=== PATIENT | female | born 1995 | race Caucasian/White ===

== ENCOUNTER → 2021-02-07 09:26 | Outpatient (CLI) | payer OTHER, SELFPAY ==
[2021-02-07] MEDS: COVID-19 VACC #1, MRNA(MOD) 100 MCG/0.5 ML VIAL IM (09:37)
== END ==
PROVIDERS: Visit Provider Internal Medicine
DX: Z23 Encounter for immunization (principal)
CPT/HCPCS: 0011A; 91301

== ENCOUNTER → 2021-03-07 08:55 | Outpatient (CLI) | payer OTHER, SELFPAY ==
[2021-03-07] MEDS: COVID-19 VACC #2, MRNA(MOD) 100 MCG/0.5 ML VIAL IM (09:04)
== END ==
PROVIDERS: Visit Provider Internal Medicine
DX: Z23 Encounter for immunization (principal)
CPT/HCPCS: 0012A; 91301

== ENCOUNTER → 2024-08-31 16:50 | Outpatient (CLI) | payer BC, SELFPAY ==
[2024-08-31 18:11] LABS: Add Manual Diff / Slide Review NO; Basophils Absolute Auto 0 /uL (0-100); Basophils Percent Auto 0.3 % (0-2); Eosinophils Absolute Auto 0 /uL (0-450); Eosinophils Percent Auto 0.8 % (2-4); Hematocrit 38.9 % (36-46); Hemoglobin 13.4 g/dL (12.0-16.0); Lymphocytes Absolute Auto 1600 /uL (1100-4500); Lymphocytes Percent Auto 42.1 % (25-40); Mean Corpuscular HGB Conc 34.4 % (30-36); Mean Corpuscular Hemoglobin 29.4 PG (26-34); Mean Corpuscular Volume 85.3 fL (80-100); Monocytes Absolute Auto 500 /uL (0-900); Monocytes Percent Auto 13.3 % (3-14); Neutrophils Absolute Auto 1700 /uL (1500-7000); Neutrophils Percent Auto 43.5 % (50-75); Platelet Count 162 X10^3/uL (150-400); Red Blood Cell Count 4.56 X10^6/uL (4.0-5.2); Red Cell Distribution Width 13.3 % (11.6-14.8); White Blood Cell Count 3.8 X10^3/uL (4.5-11.0)
[2024-08-31 18:40] LABS: Alanine Aminotransferase 21 IU/L (<35); Albumin 4.5 g/dL (3.5-5.0); Albumin Globulin Ratio 1.7 (1.0-2.8); Alkaline Phosphatase 89 U/L (38-126); Aspartate Aminotransferase 27 IU/L (14-36); Bilirubin Total 0.5 mg/dL (0.2-1.3); Blood Urea Nitrogen 8 mg/dL (7-17); Calcium 9.5 mg/dL (8.4-10.2); Carbon Dioxide 22 mmol/L (22-32); Chloride 107 mmol/L (98-107); Cholesterol 219 mg/dL (140-199); Estimated Glomerular Filt Rate > 60 mL/min (>60); Globulin 2.7 g/dL (1.7-4.1); Glucose 97 mg/dL (70-100); HDL Cholesterol 52 mg/dL (40-60); HEMOLYSIS < 15 (0-50); LDL Cholesterol Calculated 150 mg/dL (<100); Potassium 3.8 mmol/L (3.4-5.1); Sodium 136 mmol/L (137-145); Total Protein 7.2 g/dL (6.3-8.2); Triglycerides 85 mg/dL (35-150)
[2024-08-31 20:27] LABS: TSH w/ Reflex to FT4 1.22 uIU/mL (0.47-4.68)
== END ==
PROVIDERS: PCP Family Medicine; Referring Provider Family Medicine; Visit Provider Family Medicine
DX: Z00.00 Encounter for general adult medical examination without abnormal findings (principal); F32.A Depression, unspecified
CPT/HCPCS: 80053; 80061; 84443; 85025

== ENCOUNTER 2024-11-25 10:10 | Emergency (ER) | payer BC, SELFPAY ==
[2024-11-25 10:21] VITALS: BP 117/58; PULSE 76; RESP 16; TEMP 36.3; O2SAT 99; BMI 30.2
--- NOTE | 2024-11-25 10:26 | DI.RAD.S_ITS ---
PROCEDURE: XR CHEST 1V INDICATIONS: chest pain TECHNIQUE: One view of the chest was acquired. COMPARISON: None. FINDINGS: Surgical changes and devices: None. Lungs and pleura: No dense airspace disease. No pleural effusions. Mediastinum: Normal heart size Bones and chest wall: Unremarkable IMPRESSION: No dense airspace disease or pleural effusion on this single view study. Dictated by: Nakul Marroquin M.D. on 11/25/2024 at 10:06 Approved by: Nakul Marroquin M.D. on 11/25/2024 at 10:06
--- NOTE | 2024-11-25 10:26 | EKG_ITS ---
[facility] [address] [place] [address] Test Date: 2024-11-25 Pat Name: Ashley Ramsey Department: [facility] Room: Gender: Female Set O Type Operator: MARVEL : 1995 Requested By: Order Number: [id number] Reading MD: Stefan Fletcher Measurements Intervals [place] Rate: 83 P: 35 RI: 108 QRS: 54 QRSD: 82 T: -4 QT: 366 QTc: 430 Interpretive Statements Sinus rhythm with short RI Nonspecific ST abnormality Electronically Signed On 11-25-2024 17:07:08 PST by Stefan Fletcher
[2024-11-25 11:00] LABS: Add Manual Diff / Slide Review NO; Basophils Absolute Auto 0 /uL (0-100); Basophils Percent Auto 0.4 % (0-2); Eosinophils Absolute Auto 100 /uL (0-450); Eosinophils Percent Auto 1.2 % (2-4); Hematocrit 44.5 % (36-46); Lymphocytes Absolute Auto 1800 /uL (1100-4500); Lymphocytes Percent Auto 21.6 % (25-40); Mean Corpuscular HGB Conc 33.8 % (30-36); Mean Corpuscular Hemoglobin 28.6 PG (26-34); Mean Corpuscular Volume 84.8 fL (80-100); Monocytes Absolute Auto 700 /uL (0-900); Monocytes Percent Auto 8.3 % (3-14); Neutrophils Absolute Auto 5800 /uL (1500-7000); Neutrophils Percent Auto 68.5 % (50-75); Platelet Count 184 X10^3/uL (150-400); Red Blood Cell Count 5.25 X10^6/uL (4.0-5.2); White Blood Cell Count 8.4 X10^3/uL (4.5-11.0)
[2024-11-25 11:07] LABS: Prothrombin Time 11.8 SECONDS (9.4-12.5)
[2024-11-25 11:09] LABS: PTT Partial Thromboplastin Tim 38 SECONDS (25.1-36.5)
[2024-11-25 11:11] LABS: Alanine Aminotransferase 28 IU/L (<35); Albumin 4.9 g/dL (3.5-5.0); Albumin Globulin Ratio 1.8 (1.0-2.8); Alkaline Phosphatase 102 U/L (38-126); Aspartate Aminotransferase 30 IU/L (14-36); Bilirubin Total 0.7 mg/dL (0.2-1.3); Blood Urea Nitrogen 8 mg/dL (7-17); Calcium 9.8 mg/dL (8.4-10.2); Carbon Dioxide 18 mmol/L (22-32); Chloride 108 mmol/L (98-107); Creatine Kinase 55 U/L (30-135); Estimated Glomerular Filt Rate > 60 mL/min (>60); Globulin 2.8 g/dL (1.7-4.1); Glucose 104 mg/dL (70-100); HEMOLYSIS < 15 (0-50); Lipase 94 U/L (23-300); Magnesium 1.8 mg/dL (1.6-2.3); Potassium 3.2 mmol/L (3.4-5.1); Sodium 137 mmol/L (137-145); Total Protein 7.7 g/dL (6.3-8.2)
[2024-11-25 11:22] LABS: NT-proBNP (BNP-Adult 18+) < 20 pg/mL (<125); Troponin I < 0.012 ng/mL (0.01-0.034)
[2024-11-25 12:01] LABS: Adenovirus Not Detected (Not Detect); B. parapertussis Not Detected (Not Detecte); Bordetella pertussis Not Detected (Not Detect); Chlamydophila pneumoniae Not Detected (Not Detect); Coronavirus 229E Not Detected (Not Detect); Coronavirus HKU1 Not Detected (Not Detect); Coronavirus NL 63 Detected (Not Detect); Coronavirus OC43 Not Detected (Not Detect); Human Metapneumovirus Not Detected (Not Detect); Human Rhinovirus/Enterovirus Not Detected (Not Detect); Influenza A Not Detected (Not Detect); Influenza B Not Detected (Not Detect); Mycoplasma pneumoniae Not Detected (Not Detect); Parainfluenza Virus 1 Not Detected (Not Detect); Parainfluenza Virus 2 Not Detected (Not Detect); Parainfluenza Virus 3 Not Detected (Not Detect); Parainfluenza Virus 4 Not Detected (Not Detect); Respiratory Syncytial Virus Not Detected (Not Detect); SARS- CoV-2 Not Detected (Not Detecte)
--- NOTE | 2024-11-25 12:04 | ED_ITS ---
HPI - URI/Sore Throat <Bee Valles PA-C - Last Filed: 11/25/24 13:45> General Chief Complaint: Upper Respiratory Symptoms Stated Complaint: per pt has pneumonia, asthma attacks Time Seen by Provider: 11/25/24 11:51 Source: patient Mode of arrival: Ambulatory History of Present Illness HPI Narrative: 28-year-old female with a history of asthma presents with a persistent cough. Apparently she was treated in [place] for pneumonia 12 days ago and completed a 5 day Z-Christopher and oral steroid taper. She states she did start to feel better after that but now her symptoms have recurred. Her son is also here being evaluated for a cough for the last 3 days. She denies any fever, she has been using her inhaler without a spacer, tried the spacer at triaged and it was a marked improvement. She states her chest hurts when she coughs only. She is able to lay flat. She is denying any recent travel, she has a Mirena IUD from 2022, history of PCOS, COVID, migraine, anemia, hyperlipidemia, insomnia, depression. All other systems are reviewed and are negative. Related Data Home Medications Medication Instructions Recorded Confirmed buspirone 15 mg tablet 15 mg PO TID PRN 08/31/24 10/24/24 Previous Rx's Medication Instructions Recorded fluoxetine 20 mg tablet 20 mg PO DAILY #90 tabs 08/31/24 fluticasone propionate 44 1 puff inhalation BID #10.6 grams 11/25/24 mcg/actuation HFA aerosol inhaler prednisone 20 mg tablet 40 mg (2 x 20 mg) PO DAILY #10 tabs 11/25/24 Allergies Allergy/AdvReac Type Severity Reaction Status Date / Time amoxicillin Allergy Mild Verified 11/25/24 10:21 Penicillins Allergy Mild Verified 11/25/24 10:21 Review of Systems <Bee Valles PA-C - Last Filed: 11/25/24 13:45> Review of Systems Narrative: All other systems reviewed and are negative. Patient History <Bee Valles PA-C - Last Filed: 11/25/24 13:45> Medical History Hyperlipidemia Insomnia Plantar warts (~2013) Asthma (~2009) PTSD (post-traumatic stress disorder) (~2013) Anxiety (~2012) Migraines (~2018) Plantar fasciitis (~2017) COVID (~2021) Chicken pox Anemia (~2009) Vertigo (~2017) PCOS (polycystic ovarian syndrome) (~2011) Painful menstrual periods (~2007) Ovarian cyst (~2010) Heavy menstrual period (~2007) Gluten enteropathy (~2009) Preventative health care Depression (~2012) Surgical History Anesthesia Vaginal delivery (~04/14/23) History of root canal procedure (~01/2021) [place] teeth removed (~04/2014) Family History Father Hypertension Mental health problem Mother Mental health problem Thyroid disorder PCOS (polycystic ovarian syndrome) EDS (Danii-Danlos syndrome) Celiac disease Sister EDS (Danii-Danlos syndrome) PCOS (polycystic ovarian syndrome) Celiac disease Grandfather Diabetes mellitus Grandmother Diabetes mellitus Grandfather Hypertension History of heart disease Grandmother Hypertension Social History Smoking Status: Never smoker Smoking Status: Never smoker Exam <Bee Valles PA-C - Last Filed: 11/25/24 13:45> Initial Vital Signs Initial Vital Signs: Vital Signs Temperature 97.4 F L 11/25/24 10:21 Pulse Rate 76 11/25/24 10:21 Respiratory Rate 16 11/25/24 10:21 Blood Pressure 117/58 L 11/25/24 10:21 Pulse Oximetry 99 11/25/24 10:21 Oxygen Delivery Method Room Air 11/25/24 10:21 Vital signs reviewed and are normal. Const General: cooperative, healthy appearing, comfortable, No in distress and No anxious [facility] Head: normal to inspection and normocephalic Ears: hearing grossly normal bilaterally, external ears normal, TM's normal bilaterally, TM normal on the left, EAC's normal and mastoids normal Nose: external nose normal and nares normal Face and sinus: normal facial exam, sinuses nontender and face symmetric Mouth: oral mucosae normal, lip normal, tongue normal and oropharynx normal Teeth and gingiva: dentition normal and gingiva normal Throat: posterior oropharynx normal, tonsils normal and uvula midline Eyes General: Yes appearance normal, both eyes and all related structures Neck Neck: normal visual inspection, full ROM and no meningeal signs Chest Chest: normal inspection of the chest Resp Effort & Inspection: normal respiratory effort, able to speak in complete sentences, cough and respiratory effort not decreased Auscultation: clear to auscultation bilaterally, no crackles, no rales, no rhonchi and no wheezes Cardio Rate: regular rate Rhythm: regular rhythm GI Palpation: no hepatosplenomegaly Skin General: no rashes or lesions noted <DO Efra Patel Last Filed: 11/25/24 13:48> Initial Vital Signs Initial Vital Signs: Vital Signs Temperature 97.4 F L 11/25/24 10:21 Pulse Rate 76 11/25/24 10:21 Respiratory Rate 16 11/25/24 10:21 Blood Pressure 117/58 L 11/25/24 10:21 Pulse Oximetry 99 11/25/24 10:21 Oxygen Delivery Method Room Air 11/25/24 10:21 Course <Bee Valles PA-C - Last Filed: 11/25/24 13:45> Orders Ordered: ED Orders 11/25/24 10:26 XR chest 1V Stat EKG-12 Lead Stat 11/25/24 10:50 Complete Blood Count AUTO DIFF Stat Comprehensive Metabolic Panel Stat Lipase Stat Magnesium Stat NT-proBNP (BNP-Adult 18+) Stat PTT Partial Thromboplastin Erich Stat Prothrombin Time INR Stat Troponin & CK Cardiac Panel Stat 11/25/24 10:54 Respiratory Panel (Film Array) Stat Vital Signs Vital signs: Vital Signs - 8 hr 11/25/24 10:21 Temperature 97.4 F L Pulse Rate 76 Respiratory Rate 16 Blood Pressure 117/58 L Pulse Oximetry 99 Oxygen Delivery Method Room Air <Vipin Munguia DO - Last Filed: 11/25/24 13:48> Orders Ordered: ED Orders 11/25/24 10:26 XR chest 1V Stat EKG-12 Lead Stat 11/25/24 10:50 Complete Blood Count AUTO DIFF Stat Comprehensive Metabolic Panel Stat Lipase Stat Magnesium Stat NT-proBNP (BNP-Adult 18+) Stat PTT Partial Thromboplastin Erich Stat Prothrombin Time INR Stat Troponin & CK Cardiac Panel Stat 11/25/24 10:54 Respiratory Panel (Film Array) Stat Vital Signs Vital signs: Vital Signs - 8 hr 11/25/24 10:21 Temperature 97.4 F L Pulse Rate 76 Respiratory Rate 16 Blood Pressure 117/58 L Pulse Oximetry 99 Oxygen Delivery Method Room Air MDM - URI/Sore Throat <Bee Valles PA-C - Last Filed: 11/25/24 13:45> Lab Data Lab results narrative: CBC, CMP is normal except for slightly low potassium at 3.2. Troponin is negative, lipase normal, comprehensive respiratory panel is positive for plain coronavirus all others are negative. 11/25/24 10:50 11/25/24 10:50 Labs: Lab Results 11/25/24 11/25/24 Range/Units 10:50 10:54 WBC 8.4 (4.5-11.0) X10^3/uL RBC 5.25 H (4.0-5.2) X10^6/uL Hgb 15.0 (12.0-16.0) g/dL Hct 44.5 (36-46) % MCV 84.8 (80-100) fL MCH 28.6 (26-34) PG MCHC 33.8 (30-36) % RDW 14.0 (11.6-14.8) % Plt Count 184 (150-400) X10^3/uL Neut % (Auto) 68.5 (50-75) % Lymph % (Auto) 21.6 L (25-40) % [place] % (Auto) 8.3 (3-14) % Eos % (Auto) 1.2 L (2-4) % Baso % (Auto) 0.4 (0-2) % Neut # (Auto) 5800 (0057-1057) /uL Lymph # (Auto) 1800 (9753-8541) /uL [place] # (Auto) 700 (0-900) /uL Eos # (Auto) 100 (0-450) /uL Baso # (Auto) 0 (0-100) /uL PT 11.8 (9.4-12.5) SECONDS INR 1.0 (0.9-1.3) APTT 38 H (25.1-36.5) SECONDS Sodium 137 (137-145) mmol/L Potassium 3.2 L (3.4-5.1) mmol/L Chloride 108 H (98-107) mmol/L Carbon Dioxide 18 L (22-32) mmol/L BUN 8 (7-17) mg/dL Creatinine 0.89 (0.52-1.04) mg/dL Estimated GFR > 60 (>60) mL/min BUN/Creatinine Ratio 9.0 (6-22) Glucose 104 H (70-100) mg/dL Calcium 9.8 (8.4-10.2) mg/dL Magnesium 1.8 (1.6-2.3) mg/dL Total Bilirubin 0.7 (0.2-1.3) mg/dL AST 30 (14-36) IU/L ALT 28 (<35) IU/L Alkaline Phosphatase 102 (38-126) U/L Total Creatine Kinase 55 (30-135) U/L Troponin I < 0.012 (0.01-0.034) ng/mL NT-Pro-B Natriuret Pep < 20 (<125) pg/mL Total Protein 7.7 (6.3-8.2) g/dL Albumin 4.9 (3.5-5.0) g/dL Globulin 2.8 (1.7-4.1) g/dL Albumin/Globulin Ratio 1.8 (1.0-2.8) Lipase 94 (23-300) U/L Chlamy pneumoniae PCR Not detected (Not Detect) Adenovirus (PCR) Not detected (Not Detect) B. pertussis DNA (PCR) Not detected (Not Detect) B.parapertussis DNA PCR Not detected (Not Detecte) Coronavirus OC43 (PCR) Not detected (Not Detect) Coronavirus HKU1 (PCR) Not detected (Not Detect) Coronavirus 229E (PCR) Not detected (Not Detect) SARS-CoV-2 (PCR) Not detected (Not Detecte) Coronavirus NL63 (PCR) Detected H (Not Detect) Human Metapneumovir PCR Not detected (Not Detect) Influenza Type A (PCR) Not detected (Not Detect) Influenza Type B (PCR) Not detected (Not Detect) M. pneumoniae (PCR) Not detected (Not Detect) Parainfluenza 1 (PCR) Not detected (Not Detect) Parainfluenza 2 (PCR) Not detected (Not Detect) Parainfluenza 3 (PCR) Not detected (Not Detect) Parainfluenza 4 (PCR) Not detected (Not Detect) RSV (PCR) Not detected (Not Detect) Entero/Rhino (PCR) Not detected (Not Detect) Imaging Data Chest x-ray: My Impression: Deferred to radiologist's interpretation below. Radiologist's Impression: PROCEDURE: XR CHEST 1V INDICATIONS: chest pain TECHNIQUE: One view of the chest was acquired. COMPARISON: None. FINDINGS: Surgical changes and devices: None. Lungs and pleura: No dense airspace disease. No pleural effusions. Mediastinum: Normal heart size Bones and chest wall: Unremarkable IMPRESSION: No dense airspace disease or pleural effusion on this single view study. Dictated by: Nakul Marroquin M.D. on 11/25/2024 at 10:06 Approved by: Nakul Marroquin M.D. on 11/25/2024 at 10:06 ECG Data Interpretation: Twelve lead ECG shows ventricular rate of 83 per minute, sinus rhythm, no P or T-wave abnormalities. No priors for comparison, normal axis no ectopy. MDM Narrative Medical decision making narrative: Upper respiratory infection viral illness with standard coronavirus, she is afebrile with normal vital signs. Chest x-ray is normal. Discussed supportive measures, asthma management and following up with her PCP, she has noted not to be on an asthma controller I think she might benefit during this time. At the end of the encounter she did show me a controller and it was Flovent but she does not take it every day discussed the nature of asthma in the 3 components including inflammation, mucus and bronchoconstriction and that a controller will help treat the mucus and inflammation. I have asked her to restart this medication and have refilled it, please do follow up with your PCP. I have started her on a 5 day prednisone burst as well. Regarding her potassium I recommend bananas or foods rich in potassium this may include Gatorade. <Vipin Munguia, - Last Filed: 11/25/24 13:48> Lab Data Labs: Lab Results 11/25/24 11/25/24 Range/Units 10:50 10:54 WBC 8.4 (4.5-11.0) X10^3/uL RBC 5.25 H (4.0-5.2) X10^6/uL Hgb 15.0 (12.0-16.0) g/dL Hct 44.5 (36-46) % MCV 84.8 (80-100) fL MCH 28.6 (26-34) PG MCHC 33.8 (30-36) % RDW 14.0 (11.6-14.8) % Plt Count 184 (150-400) X10^3/uL Neut % (Auto) 68.5 (50-75) % Lymph % (Auto) 21.6 L (25-40) % [place] % (Auto) 8.3 (3-14) % Eos % (Auto) 1.2 L (2-4) % Baso % (Auto) 0.4 (0-2) % Neut # (Auto) 5800 (5406-7183) /uL Lymph # (Auto) 1800 (6629-1261) /uL [place] # (Auto) 700 (0-900) /uL Eos # (Auto) 100 (0-450) /uL Baso # (Auto) 0 (0-100) /uL PT 11.8 (9.4-12.5) SECONDS INR 1.0 (0.9-1.3) APTT 38 H (25.1-36.5) SECONDS Sodium 137 (137-145) mmol/L Potassium 3.2 L (3.4-5.1) mmol/L Chloride 108 H (98-107) mmol/L Carbon Dioxide 18 L (22-32) mmol/L BUN 8 (7-17) mg/dL Creatinine 0.89 (0.52-1.04) mg/dL Estimated GFR > 60 (>60) mL/min BUN/Creatinine Ratio 9.0 (6-22) Glucose 104 H (70-100) mg/dL Calcium 9.8 (8.4-10.2) mg/dL Magnesium 1.8 (1.6-2.3) mg/dL Total Bilirubin 0.7 (0.2-1.3) mg/dL AST 30 (14-36) IU/L ALT 28 (<35) IU/L Alkaline Phosphatase 102 (38-126) U/L Total Creatine Kinase 55 (30-135) U/L Troponin I < 0.012 (0.01-0.034) ng/mL NT-Pro-B Natriuret Pep < 20 (<125) pg/mL Total Protein 7.7 (6.3-8.2) g/dL Albumin 4.9 (3.5-5.0) g/dL Globulin 2.8 (1.7-4.1) g/dL Albumin/Globulin Ratio 1.8 (1.0-2.8) Lipase 94 (23-300) U/L Chlamy pneumoniae PCR Not detected (Not Detect) Adenovirus (PCR) Not detected (Not Detect) B. pertussis DNA (PCR) Not detected (Not Detect) B.parapertussis DNA PCR Not detected (Not Detecte) Coronavirus OC43 (PCR) Not detected (Not Detect) Coronavirus HKU1 (PCR) Not detected (Not Detect) Coronavirus 229E (PCR) Not detected (Not Detect) SARS-CoV-2 (PCR) Not detected (Not Detecte) Coronavirus NL63 (PCR) Detected H (Not Detect) Human Metapneumovir PCR Not detected (Not Detect) Influenza Type A (PCR) Not detected (Not Detect) Influenza Type B (PCR) Not detected (Not Detect) M. pneumoniae (PCR) Not detected (Not Detect) Parainfluenza 1 (PCR) Not detected (Not Detect) Parainfluenza 2 (PCR) Not detected (Not Detect) Parainfluenza 3 (PCR) Not detected (Not Detect) Parainfluenza 4 (PCR) Not detected (Not Detect) RSV (PCR) Not detected (Not Detect) Entero/Rhino (PCR) Not detected (Not Detect) Discharge Plan Departure Patient Disposition: Home Clinical Impression: Asthma Qualifiers: Asthma severity: mild Asthma persistence: unspecified Asthma complication type: uncomplicated Qualified Code(s): J45.909 - Unspecified asthma, uncomplicated URI (upper respiratory infection) Qualifiers: URI type: unspecified viral URI Qualified Code(s): J06.9 - Acute upper respiratory infection, unspecified Instructions: DI for Asthma -- Adult, DI for Viral Upper Respiratory Infection -- Adult Activity Restrictions/Additional Instructions: I would like you to follow up with your PCP to have your asthma re-evaluated, I think he would benefit from a controller, I have refilled your Flovent please do take that as instructed. I have also placed you on a new steroid burst prednisone 40 mg daily for 5 days. Steam therapy, saline nasal spray, use your rescue inhaler with the new spacer that you have been given and by all means seek medical attention if anything changes or worsens. At this point you do have a confirmed viral illness so no additional antibiotics have been ordered, your vital signs are normal and your chest x-ray showed no pneumonia. Please do not hesitate to seek medical attention if it is after hours or you develop any new worrisome symptoms the emergency department is available 247. Prescriptions: New fluticasone propionate 44 mcg/actuation HFA aerosol inhaler 1 puff inhalation BID Qty: 10.6 0RF Rx Instructions: administer with spacer prednisone 20 mg tablet 40 mg PO DAILY Qty: 10 0RF No Action buspirone 15 mg tablet 15 mg PO TID PRN fluoxetine 20 mg tablet 20 mg PO DAILY Qty: 90 3RF Rx Instructions: start taking 20 mg Referrals: Lisette Gongora DO [Primary Care Provider] - Stand Alone Forms: Patient Portal/API/Survey ED Sign-out <Vipin Munguia DO - Last Filed: 11/25/24 13:48> Cosign ED Attending Cosignature Attestation: Dr Munguia Co-Sign Statement: I was available for consultation during this patient's emergency department visit. This chart is signed by myself for administrative purposes only. I did not have direct contact with this patient during this visit. They were seen independently by the APC.
--- NOTE | 2024-11-26 13:00 | PC.NURSE ---
Patient's spouse called in to let us know that these meds weren't covered under their insurance at [facility]. Requested that we send the order to [facility]; done by ANDRES Escobar.
== END 2024-11-25 13:23 | disposition home or self-care (01) ==
PROVIDERS: Emergency Medicine; Emergency Provider Physician Assistant Medical; PCP Family Medicine
DX: J06.9 Acute upper respiratory infection, unspecified (principal); J45.909 Unspecified asthma, uncomplicated; B97.29 Other coronavirus as the cause of diseases classified elsewhere
CPT/HCPCS: 36415; 71045; 80053; 82550; 83690; 83735; 83880; 84484; 85025; 85610; 85730; 87633; 93005; 99281; 99284

== ENCOUNTER → 2024-12-21 13:11 | Outpatient (CLI) | payer BC, SELFPAY | LOC: RESP 13:12 | PROVIDERS: PCP Family Medicine; Referring Provider Physician Assistant; Visit Provider Physician Assistant | DX: J45.901 Unspecified asthma with (acute) exacerbation (principal) | CPT/HCPCS: 94060 ==

== ENCOUNTER → 2025-04-20 14:38 | Outpatient (CLI) | payer BC, SELFPAY ==
[2025-04-20 15:35] LABS: Appearance Urine UA CLEAR; Bilirubin Urine UA NEGATIVE (NEGATIVE); Glucose Urine UA NEGATIVE (Negative); Ketones Urine UA NEGATIVE (NEGATIVE); Leukocyte Esterase Urine UA TRACE (NEGATIVE); Nitrite Urine UA NEGATIVE (Negative); Occult Blood Urine UA NEGATIVE (Negative); Protein Urine UA NEGATIVE (Negative); Specific Gravity Urine UA <=1.005 (1.000-1.035); Urobilinogen Urine UA 0.2 E.U./dL (0.2)
[2025-04-20 15:36] LABS: Color Urine UA Yellow
[2025-04-20 15:49] LABS: Bacteria Urine Few (2-10); RBC Urine None Seen (0-5/HPF); Squamous Epithelial Cell Urine 1-5 /HPF (0-5/HPF); Urine Volume 10mL (spun); WBC Urine 0-1/HPF (0-5/HPF)
[2025-04-20 15:50] LABS: Culture Indicated Urine Cult Not Indicated
[2025-04-20 16:20] LABS: TSH w/ Reflex to FT4 0.98 uIU/mL (0.47-4.68)
[2025-04-22 05:13] LABS: Thyroid Peroxidase Antibodies 21 IU/mL (0-34)
[2025-04-24 12:13] LABS: ANA Screen, IFA Negative (.)
[2025-04-24 14:11] LABS: IgA 90 mg/dL (87-352); t-Transglutaminase IgA <2 U/mL (0-3)
== END ==
PROVIDERS: PCP Family Medicine; Referring Provider Family Medicine; Visit Provider Family Medicine
DX: M25.50 Pain in unspecified joint (principal); M54.50 Low back pain, unspecified; R10.2 Pelvic and perineal pain; R14.0 Abdominal distension (gaseous); Z87.440 Personal history of urinary (tract) infections; Z83.49 Family history of other endocrine, nutritional and metabolic diseases
CPT/HCPCS: 36415; 81001; 82784; 83516; 84443; 86038; 86376